=== PATIENT | female | born 2000 | race Two or more races ===

== ENCOUNTER → 2022-06-03 | Emergency (ER) | payer OTHER ==
[~2022-06-03] VITALS: Ht 167.6 cm; Wt 53.1 kg
== END | disposition home or self-care (01) ==
LOC: EMR PED 16:50 → ER 16:59
DX: O98.511 Other viral diseases complicating pregnancy, first trimester (principal); Z3A.09 9 weeks gestation of pregnancy; R11.10 Vomiting, unspecified; U07.1 COVID-19; J98.8 Other specified respiratory disorders

== ENCOUNTER 2024-04-24 15:49 | Emergency (ER) | payer OTHER ==
[~2024-04-24] VITALS: Ht 157.5 cm; Wt 54.4 kg
[2024-04-24 18:05] LABS: HEMATOCRIT 37.7 % (36.0-45.00); HEMOGLOBIN 12.7 g/dL (12.0-15.00); MEAN CELL VOLUME 85.2 fL (80.00-100.00); MEAN CORPUSCULAR HEMOGLOBIN 28.6 pg (27.00-32.0); MEAN CORPUSCULAR HGB CONC 33.6 g/dl (32.0-36.0); PLATELET COUNT 256 K/uL (150-450); RED BLOOD COUNT 4.43 M/uL (4.00-6.00); RED CELL DISTRIBUTION WIDTH 15.7 % (11.5-14.5)
[2024-04-24 18:25] LABS: URINE APPEARANCE Cloudy; URINE BILIRRUBIN Negative (NEGATIVE); URINE BLOOD Negative; URINE COLOR Yellow; URINE GLUCOSE Negative (NEGATIVE); URINE KETONE Negative (NEGATIVE); URINE LEUKOCYTE Negative; URINE NITRATE Negative; URINE PROTEIN Negative (NEGATIVE)
[2024-04-24 18:26] LABS: URINE BACTERIA 2040.2 uL (0.0-1933); URINE EPITHELIAL CELLS 85.8 uL (0.0-38.8); URINE RBC 2.5 uL (0.0-20.8); URINE WBC 14.7 uL (0.0-23.2)
== END 2024-04-24 22:57 | disposition home or self-care (01) ==
LOC: ER 15:52
PROVIDERS: Preventive Medicine Public Health & General Preventive Medicine
DX: O26.891 Other specified pregnancy related conditions, first trimester (principal); R10.2 Pelvic and perineal pain; O43.891 Other placental disorders, first trimester; Z3A.01 Less than 8 weeks gestation of pregnancy

== ENCOUNTER 2024-05-16 11:51 | Emergency (ER) | payer OTHER ==
[~2024-05-16] VITALS: Ht 160 cm; Wt 55.3 kg
[2024-05-16 13:28] LABS: HEMATOCRIT 34.6 % (36.0-45.00); HEMOGLOBIN 11.3 g/dL (12.0-15.00); MEAN CELL VOLUME 86.4 fL (80.00-100.00); MEAN CORPUSCULAR HEMOGLOBIN 28.3 pg (27.00-32.0); MEAN CORPUSCULAR HGB CONC 32.7 g/dl (32.0-36.0); PLATELET COUNT 259 K/uL (150-450); RED BLOOD COUNT 4.01 M/uL (4.00-6.00); RED CELL DISTRIBUTION WIDTH 15.1 % (11.5-14.5)
[2024-05-16 13:56] LABS: PH,URINE 6.5 (5.0-8.0); URINE APPEARANCE Cloudy; URINE BILIRRUBIN Negative (NEGATIVE); URINE BLOOD Large; URINE COLOR Yellow; URINE GLUCOSE Negative (NEGATIVE); URINE KETONE Negative (NEGATIVE); URINE LEUKOCYTE Negative; URINE NITRATE Negative; URINE PROTEIN Trace (NEGATIVE)
[2024-05-16 14:00] LABS: URINE BACTERIA 45.2 uL (0.0-1933); URINE RBC 3683.1 uL (0.0-20.8); URINE WBC 18.2 uL (0.0-23.2)
[2024-05-16 14:09] LABS: URINE CAST 0.29 uL (0.0-1.40)
== END 2024-05-16 16:57 | disposition home or self-care (01) ==
LOC: ER 11:53
PROVIDERS: Emergency Medicine
DX: O20.8 Other hemorrhage in early pregnancy (principal); Z3A.17 17 weeks gestation of pregnancy